=== PATIENT | female | born 1945 | race Caucasian/White ===

== ENCOUNTER → 2023-06-22 10:15 | Outpatient (REF) | payer OTHER, SELFPAY | LOC: HWRAD 10:15 | PROVIDERS: ATTENDING PHYSICIAN Urology; FAMILY PHYSICIAN Physician Assistant Medical | DX: N32.81 Overactive bladder (principal); N31.9 Neuromuscular dysfunction of bladder, unspecified | CPT/HCPCS: 76770 ==

== ENCOUNTER → 2023-10-21 08:39 | Outpatient (REF) | payer OTHER, SELFPAY | LOC: HWRAD 08:39 | PROVIDERS: ATTENDING PHYSICIAN Physician Assistant; FAMILY PHYSICIAN Physician Assistant Medical | DX: E04.2 Nontoxic multinodular goiter (principal) | CPT/HCPCS: 76536 ==

== ENCOUNTER → 2023-11-01 10:28 | Outpatient (REF) | payer OTHER, SELFPAY | LOC: HWWDC 10:28 | PROVIDERS: ATTENDING PHYSICIAN Physician Assistant Medical | DX: Z12.31 Encounter for screening mammogram for malignant neoplasm of breast (principal) | CPT/HCPCS: 77063; 77067 ==

== ENCOUNTER → 2024-03-08 13:41 | Outpatient (REF) | payer OTHER, SELFPAY | LOC: HWRAD 13:41 | PROVIDERS: ATTENDING PHYSICIAN Physician Assistant Medical | DX: M25.551 Pain in right hip (principal); L23.9 Allergic contact dermatitis, unspecified cause | CPT/HCPCS: 72110; 73523 ==

== ENCOUNTER → 2024-03-28 11:29 | Outpatient (REF) | payer OTHER, SELFPAY | LOC: HWRAD 11:29 | PROVIDERS: ATTENDING PHYSICIAN Urology; FAMILY PHYSICIAN Physician Assistant Medical | DX: N31.9 Neuromuscular dysfunction of bladder, unspecified (principal); N39.41 Urge incontinence; R39.198 Other difficulties with micturition | CPT/HCPCS: 76770 ==

== ENCOUNTER 2024-08-27 20:13 | Inpatient (IN) | payer OTHER, SELFPAY ==
[2024-08-27] VITALS (9 sets, daily range): BP systolic 131–171; BP diastolic 78–119; BMI 35.6
[2024-08-27 16:22] LABS: % Basophils 0.4 % (0-2); % Eosinophils 1.2 % (0-6); % Immature Granulocytes 0.3 % (0-0.5); % Lymphocytes 13.6 % (20.5-51.1); % Monocytes 7.2 % (1.7-9.3); % Neutrophils 77.3 % (42.2-75.2); Absolute Basophils 0.1 10^3/uL (0-0.2); Absolute Eosinophils 0.2 10^3/uL (0-0.7); Absolute Immature Granulocytes 0.1 10^3/uL (0-0.05); Absolute Lymphocytes 2.1 10^3/uL (1.2-3.4); Absolute Monocytes 1.1 10^3/uL (0.1-0.6); Hematocrit 42.5 % (37.0-47.0); Hemoglobin 14.1 g/dL (12.0-16.0); Mean Corp Hgb Conc. 33.2 g/dL (33.0-37.0); Mean Corpuscular Volume 90.4 fL (81.0-99.0); Nucleated Red Blood Cells % 0 %; Platelet Count 246 10^3/uL (130-400); Red Cell Dist. Width 14.3 % (11.5-14.5); White Blood Cell Count 15.6 10^3/uL (4.8-10.8)
--- NOTE | 2024-08-27 16:33 | ED.GENMED ---
History of Present Illness
General
Chief Complaint: Heart Rate Problem
Source: patient
Exam Limitations: none
Time Seen by Provider: 08/27/24 16:11
Nursing documentation reviewed up to this point in time: agreed with
History of Present Illness
History of Present Illness:
78-year-old female presenting to the emergency department today with concerns of being in atrial fibrillation. Saw the chief port director today has been feeling somewhat weak and tired over the past few days was found to be in atrial fibrillation with
rapid ventricular response. She was sent to the ER for further assessment. Denies specific chest pain nausea vomiting any recent illness. She is not anticoagulated.
Past History
Past History
ED Past Medical History: Hypercholesterolemia
Social History
Tobacco: Non-smoker
Alcohol: None
Drug: None
Personal:
Living: with family
Review of Systems
Review of Systems
Allergies reviewed?: Yes
All Other Systems: ROS reviewed and negative except as documented in HPI and ROS
Phy Exam
Physical Exam
Physical Exam:
GENERAL: Alert , in no apparent distress
EYE: pupils equal and reactive
NECK: Supple, no significant adenopathy.
ENT: o/p clr, mmm.
CARDIAC: Irregularly irregular tachycardic
LUNGS: Clear breath sounds bilaterally, no acute respiratory distress, no wheezes/rales/rhonchi
ABDOMEN: Soft, without focal tenderness, no r/g, no cvat
NEUROLOGICAL: Alert and oriented, no focal neuro deficits
SKIN: Warm and dry, skin intact.
MUSCULOSKELETAL: No edema, well perfused.
PSYCH: Normal and appropriate interaction.
Course
Orders/Labs/Results
Orders:
Orders
08/27/24 15:42
Electrocardiogram (*1) Urgent
Reason for Study: Chest Pain
EKG- Treatment ONCE
08/27/24 15:54
Electrocardiogram (*1) Urgent
Reason for Study: Palpitations
EKG- Treatment ONCE
08/27/24 16:05
COVID-19 Antigen Urgent
Source: Nasal Swab
Complete Blood Count/With Diff Urgent
Comprehensive Metabolic Panel Urgent
Influenza A+B Rapid Molecular Urgent
SHEREE Source: Nasal Swab
Specimen Description:
08/27/24 16:14
CT Head W/o Iv Contrast Urgent
Comment:
Reason For Exam: afib, memory issues
08/27/24 16:25
Diltiazem HCl [Cardizem] 10 mg IV NOW STA
Diltiazem HCl [Cardizem] 15 mg IV NOW STA
08/27/24 16:40
Add On- LAB Urgent
Tests Added?: tsh free t4
TSH Reflex To Free T4 Urgent
08/27/24 18:02
Diltiazem HCl [Cardizem] 10 mg IV NOW STA
08/27/24 18:07
Diltiazem 125 mg/125 ml Nss [Cardizem] 125 mg in 125 ml .ROUTE .STK-MED
08/27/24 18:15
Diltiazem 125 mg/125 ml Nss [Cardizem] 125 mg in 125 ml IV PER PROTOCOL
Initial dose in mg/hr, then titrate:: 5
Titrate to keep:: Heart rate 80-100 bpm
Titrate by mg/hr:: 5 mg/hr
Frequency of titrations (minutes):: 15
Maximum dose in mg/hr:: 15
08/27/24 18:59
Urinalysis Reflex To Culture Urgent
Date Specimen was Collected: 08/27/24
Time Specimen was Collected: 20:01
Acetaminophen [Tylenol] 650 mg PO NOW STA
Chest [CR Chest - 2 Views ] Urgent
Comment:
Reason For Exam: cough efevr
08/27/24 19:00
Acetaminophen [Tylenol] 650 mg .ROUTE .STK-MED ONE
08/27/24 19:04
Apixaban [Eliquis] 10 mg PO ONCE ONE
08/27/24 19:54
Admit/Transfer Patient As Directed
Co-Sign Provider:
Level of Care: Inpatient admission
Assign to:: IMU- Intermediate Care
Physician / Group: hospitalist
Diagnosis: afib RVR
Reason for Hospitalization: AFIB RVR
Expected length of stay greater than two midnights?: Yes
ELOS- Estimated Length of Stay in days: 2
I certify the patient meets the requirements for IP care: Yes
08/27/24 19:55
PRN Pain Medication Management As Directed
May give lesser potent ordered pain med per pt: Yes
preference::
Protocol:: Medication orders for pain may be administered in a
manner that supports deferring to patient preference
when the pt is:
- Requesting an ordered lesser potent pain medication.
Least to most potent pain medications are defined
as: acetaminophen < NSAID < tramadol < opioids
(morphine, oxycodone, hydromorphone).
- Requesting a lesser dose of the same medication IF
ORDERED.
- Requesting a less intrusive route of administration
if both routes are prescribed by the provider (PO <
IV).
08/27/24 19:56
Apixaban [Eliquis] 10 mg .ROUTE .STK-MED ONE
08/27/24 19:57
Code Status As Directed
Resuscitation Status: Full Code
08/27/24 20:00
Blood Culture Q30M
SHEREE Source: Blood/Venous
Specimen Description:
0.9% Sodium Chloride 500 ml [Nss] 500 ml IV BOLUS
08/27/24 20:30
Blood Culture Q30M
SHEREE Source: Blood/Venous
Specimen Description:
08/28/24 06:00
Echo 2D MMode Color/Doppler IN AM
Reason for Study: new AFIB
Abnormal Lab Results
08/27/24
16:05
WBC 15.6 H 10^3/uL
(4.8-10.8)
Abs Immat Gran (auto) 0.1 H 10^3/uL
(0-0.05)
Absolute Neuts (auto) 12.0 H 10^3/uL
(1.4-6.5)
Absolute Monos (auto) 1.1 H 10^3/uL
(0.1-0.6)
Neutrophils % 77.3 H %
(42.2-75.2)
Lymphocytes % 13.6 L %
(20.5-51.1)
BUN 23 H mg/dl
(7-17)
Glucose 113 H mg/dl
(70-99)
08/27/24 16:05
08/27/24 16:05
Vital Signs
Initial and Last Documented VS:
Initial Vital Signs
Temp Pulse Resp BP Pulse Ox
100.3 F 125 18 171/119 97
08/27/24 15:52 08/27/24 15:52 08/27/24 15:52 08/27/24 15:52 08/27/24 15:52
Last Documented Vital Signs
Temp Pulse Resp BP Pulse Ox
101.0 F H 123 20 145/89 97
08/27/24 18:44 08/27/24 18:44 08/27/24 18:44 08/27/24 18:44 08/27/24 18:44
MDM/Problems Addressed
MDM/Problems Addressed:
78-year-old female presenting with concerns of atrial fibrillation discovered by the chief port director prior to arrival. Has been feeling vague weakness fatigue brain fog over the past few days. On arrival patient is tachycardic from 120s to 150s,
hypertensive. Given initial bolus of Cardizem slight improvement in heart rate given subsequent dose improvement to the 120s admitted for further testing monitoring. Started on Eliquis.
*Critical Care Note
Total Time (30-74mins, 75-104mins- exclusive of procedures): Not Applicable
ED Attending Note
-
Portions of this chart may have been created with voice recognition software.� Occasional wrong word or��sound alike� substitutions may have occurred due to the inherent limitations of voice recognition software.
Discharge Plan
Departure
Patient Disposition: Admit
Date of Disposition: 08/27/24
Time of Disposition: 19:33
Admit to: Telemetry
Admit to doctor: [facility]
Presentation/result/management discussed w/ accepting MD/DO: Hospitalist
Patient with high blood pressure during this ER visit?: No
Condition: Good
Covid-19: Not Applicable
Discharge Problem:
Atrial fibrillation
Prescriptions:
No Action
levothyroxine 50 MCG tablet
50 mcg PO DAILY@0700
diltiazem HCl [Cartia XT] 120 MG capsule,extended release 24hr
120 mg PO QPM
atorvastatin 40 MG tablet
40 mg PO QPM
cetirizine 10 MG tablet
10 mg PO QPM
biotin 5 MG capsule
5 mg PO DAILY
calcium carbonate-vitamin D3 [Calcium 600 + D(3)] 1 EACH tablet
1 ea PO QPM
Iron 65 MG Tab
65 mg PO QPM
cholecalciferol (vitamin D3) [Vitamin D3] 400 UNITS tablet
1,000 units PO QPM
magnesium 200 MG tablet
360 mg PO QPM
B complex-vitamin C-folic acid 400 MCG tablet
1 tab PO QPM
melatonin 1 MG tablet
5 mg PO HSPRN PRN (Reason: insomnia)
chlorhexidine gluconate 15 ML mouthwash
15 ml PO HS
sennosides [senna] 1 TABLET tablet
2 tab PO BID 0RF
docusate sodium 100 MG capsule
100 mg PO BID 0RF
oxycodone-acetaminophen [Percocet] 1 EACH tablet
0.5 - 1 tab PO Q4HPRN PRN (Reason: moderate-severe pain) Qty: 30 0RF
Rx Instructions:
1/2 tab for moderate pain, 1 if severe pain
dx lami
ongoing therapy
docosahexaenoic acid-epa 1 CAP capsule
3,600 mg PO QPM Qty: 0 0RF
Rx Instructions:
Resume in 1 week.
coenzyme Q10 [Co Q-10] 300 MG capsule
300 mg PO QPM Qty: 0 0RF
Rx Instructions:
Resume in 1 week.
glucosamine hernandez 2KCl-chondroit [Glucosamine Sulf-Chondroitin] 1 EACH capsule
2 cap PO QPM Qty: 0 0RF
Rx Instructions:
Resume in 1 week.
lorazepam 1 MG tablet
1 mg PO Q8HPRN PRN (Reason: muscle spasms/insomnia) Qty: 20 0RF
Rx Instructions:
Caution with Percocet - can cause drowsiness.
Take only as needed and as directed.
aspirin [Ecotrin Low Strength] 81 MG tablet,delayed release (DR/EC)
81 mg PO DAILY Qty: 1 0RF
Rx Instructions:
Home medication. Resume 03/22/21 per surgeon.
Referrals:
Everett Macias PA-C [Family Provider] -
Activity Restrictions/Additional Instructions:
th
Interventions
Interventions:
*Risk Screen - Suicide Last Done: 08/27/24 15:54
*General Assessment Last Done: 08/27/24 15:54
*Neglect/Abuse Screening Last Done: 08/27/24 15:54
*ED COVID-19 Vaccine History Last Done: 08/27/24 15:54
ED- Cardiac Assessment Last Done: 08/27/24 18:17
ED- Pulmonary Assessment Last Done: 08/27/24 16:42
Discharge Date and Time
Print Language: PORTUGUESE
[2024-08-27 16:37] LABS: ALT (SGPT) 29 U/L (0-35); AST (SGOT) 26 U/L (14-36); Albumin 3.9 g/dl (3.5-5.0); Alkaline Phosphatase 107 U/L (38-126); Blood Urea Nitrogen 23 mg/dl (7-17); Calcium 9.4 mg/dl (8.4-10.2); Carbon Dioxide 26 mmol/L (22-30); Chloride 99 mmol/L (98-107); Glucose 113 mg/dl (70-99); Potassium 4.7 mmol/L (3.5-5.1); Sodium 135 mmol/L (135-145); Total Bilirubin 0.7 mg/dl (0.2-1.3); Total Protein 6.8 g/dl (6.3-8.2); eGFR > 60.00
[2024-08-27 16:43] LABS: COVID-19 Antigen Negative (Negative)
--- NOTE | 2024-08-27 16:58 | W.PN.CD ---
Addendum entered and electronically signed by Vikas Cornell MD 08/27/24 17:55:
I saw and examined the patient.
The BINDING PRINTER's note was reviewed and I agree with the note.
Comment: Rate control and when CT allows add Eliquis. Symptoms started several days ago but AFib duration is unknown and given low grade fever and mild leukocytosis she might have a infectious or inflamatory process accounting for some of her new
fatigue. Neurologic symptoms are of uncertain etiology.
Addendum entered and electronically signed by JESU Stuart 08/27/24 17:28:
There is WBC elevation and low grade temp- w/u per primary
Original Note:
Today's Communication / Plan
-
-rate-control. IV dilt is ordered. Monitor telemetry and BP.
-if head CT negative, anticoagulation should be initiated
-TSH pending
-echo once HR better controlled
Impression / Plan
-
78 y/o female (patient of Dr. Rhodes) with dyslipidemia, atrial tachycardia, bradycardia, hypertension, and hypothyroidism who presents from the cardiology office after she was seen to be in AFIB with RVR (new diagnosis), which was symptomatic with
fatigue. She was sent to ER for further evaluation. 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
AFIB with RVR, onset unknown, new diagnosis:
-IV diltiazem administered for better rate control- follow telemetry
-[id number] score is 4 for age, HTN, female- after head CT done, if negative, add anticoagulation
-TSH pending
-update echo
HTN:
-monitor with med adjustments
Hypothyroidism:
-TSH pending
-on replacement therapy
Physical Exam
Vital Signs/Labs
Vital Signs
Temp Pulse Resp BP Pulse Ox
100.3 F 125 18 171/119 97
04/28/25 15:52 08/27/24 15:52 08/27/24 15:52 08/27/24 15:52 08/27/24 15:52
08/27/24 16:05
08/27/24 16:05
Physical Exam
Constitutional: No acute distress
EENT: Anicteric
Cardiovascular: Rhythm/rate is irregular
Respiratory: Respiratory effort normal and Lungs clear to auscul.
Neuro/Psych: AO x 3
Other: Skin
Data Reviewed
-
Date of Service: August 27, 2024
EKG: Tracing Personally Visualized and interpreted (AFIB with RVR, PVC) and Other (AFIB with RVR, telemetry)
Medical Tests (PFT, Pathology etc): Report Reviewed by me (echo 05/20/21: Normal biventricular size and systolic function without regional wall motion abnormality. Aortic sclerosis. )
Labs: Labs Reviewed by me
[2024-08-27] MEDS: CARDIZEM 15 MG IV (17:02)
[2024-08-27] MEDS: CARDIZEM 10 MG IV (18:19)
[2024-08-27] MEDS: CARDIZEM 125 IV (18:23)
[2024-08-27] MEDS: TYLENOL 650 MG PO (19:03)
--- NOTE | 2024-08-27 19:46 | HPS.HSE ---
Family Physician
-
Family Physician: Everett Macias PA-C
Chief Complaint
-
Uncontrolled atrial fibrillation
History of Present Illness
This is a 78 year-old female with past medical history significant for hypertension, atrial tachycardia, hypothyroid, hyperlipidemia presenting to the emergency department from cardiology clinic with rapid atrial fibrillation.
Patient reported that she had a COVID vaccination on . About a day later she states she started feeling weak and tired. She denied any federico fevers. She denies feeling short of breath. She denies any cough. She denied feeling any
palpitations. She denied lightheadedness or dizziness. She has chronic urinary symptoms including her incontinence. She states that she has had more incontinence over the last 2 days. She denies any diarrhea. She denies any nausea or vomiting.
She denies any chest pain.
In the emergency department she had a Tmax of 101, blood pressure 145/59 with heart rate in 130s. ECG shows atrial fibrillation rate of 136.
CBC had a white count of 15.6 but otherwise unremarked. Electrolytes were stable with a K of 4.7 and BUN and creatinine were normal.
Additional testing is pending.
Medical History
Past Medical History
Past Medical History: Reports Arrhythmia (History of atrial tachycardia), HTN, Hypercholesterolemia and Hypothyroidism
Past Surgical History: Reports Appendectomy, Orthopedic (Left knee replacement,L5-S1 ILESI , Laminectomy and spinal fusion, L3-L5--Dr. Gordon Moyer 03/2021 ) and Tonsilectomy
Social History
Tobacco: Non-smoker
Alcohol: Occasional
Drug: None
Personal:
Living: With Family
Employment: Retired
Family History
Family History: Not pertinent
Allergies / Home Medications
Allergies reflects when Allergies were last updated in [employer].
Home Medications with original date entered in [employer]
Allergy/Medication List:
Allergies
Allergy/AdvReac Type Severity Reaction Status Date / Time
bee venom protein (honey bee) Allergy Swelling Verified 03/17/21 06:18
Home Medications
Iron 65 mg PO QPM Supplement 10/03/18
atorvastatin 40 mg tablet 40 mg PO QPM High cholesterol 10/03/18
biotin 5 mg capsule 5 mg PO DAILY Supplement 10/03/18
calcium 600 mg (as carbonate)-vitamin D3 10 mcg (400 unit) tablet (Calcium 600 + D(3)) 1 ea PO QPM Supplement 10/03/18
cetirizine 10 mg tablet 10 mg PO QPM Allergies 10/03/18
diltiazem HCl 120 mg capsule,extended release 24 hr (Cartia XT) 120 mg PO QPM Heart disease/condition 10/03/18
levothyroxine 50 mcg tablet 50 mcg PO DAILY@0700 Thyroid 10/03/18
cholecalciferol (vitamin D3) 10 mcg (400 unit) tablet (Vitamin D3) 1,000 units PO QPM Supplement 03/04/21
magnesium 200 mg tablet 360 mg PO QPM Electrolyte Repletion 03/04/21
vitamin B complex-vitamin C-folic acid 400 mcg tablet 1 tab PO QPM Supplement 03/04/21
melatonin 1 mg tablet 5 mg PO HSPRN PRN insomnia 03/09/21
chlorhexidine gluconate 0.12 % mouthwash 15 ml PO HS Oral care 03/17/21
aspirin 81 mg tablet,delayed release (Ecotrin Low Strength) 81 mg PO DAILY ##1 03/18/21
coenzyme Q10 300 mg capsule (Co Q-10) 300 mg PO QPM Supplement ##0 03/18/21
docosahexaenoic acid (dha)-epa 120 mg-180 mg capsule 3,600 mg (12 x 120-180 mg) PO QPM Supplement ##0 03/18/21
docusate sodium 100 mg capsule 100 mg PO BID 03/18/21
glucosamine sulfate dipotassium Cl 500 mg-chondroitin 400 mg capsule (Glucosamine Sulfate 2 KCL-Chondroitin) 2 cap PO QPM Supplement ##0 03/18/21
lorazepam 1 mg tablet 1 mg PO Q8HPRN PRN muscle spasms/insomnia #20 tabs 03/18/21
oxycodone-acetaminophen 10 mg-325 mg tablet (Percocet) 0.5 - 1 tab PO Q4HPRN PRN moderate-severe pain #30 tabs 03/18/21
sennosides 8.6 mg tablet (senna) 2 tab PO BID 03/18/21
Review of Systems
-
History Source: Patient
Constitutional: Reports No Symptoms
EENT: Reports No Symptoms
Respiratory: Reports No Symptoms
Cardiac: Reports No Symptoms
Abdomen/GI: Reports No Symptoms
: Reports No Symptoms
Musculoskeletal: Reports No Symptoms
Skin: Reports No Symptoms
Neurological: Reports No Symptoms
Endocrine: Reports No Symptoms
Hematologic/Lymphatic: Reports No Symptoms
Psych: Reports No Symptoms
Physical Exam
Vital Signs
Vital Signs
Temp Pulse Resp BP Pulse Ox
101.0 F H 123 20 145/89 97
08/27/24 18:44 08/27/24 18:44 08/27/24 18:44 08/27/24 18:44 08/27/24 18:44
Physical Exam
General: Well Developed, Well Nourished, No Apparent Distress and Comfortable
HEENT: NormoCephalic, Anicteric, Moist mucous membranes and Atraumatic
Respiratory: Clear
Cardiac: S1/S2, Irregular Rhythm and Tachycardia
Breast: Deferred by me
GI: Soft, Non Tender, Non Distended and Normal Bowel Sounds
Rectal: Deferred by Provider
Genito-urinary: Deferred by me
Musculoskeletal: No Clubbing, No Cyanosis and No Edema
Skin: Warm
Neuro: AO x 3 and Nonfocal/grossly intact
Hematologic/Lymphatic: No Lymphadenopathy
Psych: Calm
Laboratory Results
-
08/27/24 16:05
08/27/24 16:05
Laboratory Results
Total Bilirubin 0.7 mg/dl (0.2-1.3) 08/27/24 16:05
AST 26 U/L (14-36) 08/27/24 16:05
ALT 29 U/L (0-35) 08/27/24 16:05
Alkaline Phosphatase 107 U/L (38-126) 08/27/24 16:05
Data Reviewed
-
Medical Tests (Nuc Med, Echo, EKG etc): Image Personally Visualized and interpreted
Lab Data: Labs Reviewed by me
Old Records: Reviewed
Impression/Plan
-
IMPRESSION:
78-year-old female with history of atrial tachycardia, hypertension, hypothyroid and hyperlipidemia who presents emergency department from cardiology clinic with rapid atrial fibrillation. Febrile to 101 in the Emergency Department without any
acute symptoms. Leukocytosis to 15 but otherwise unremarkable labs.
PLAN:
AFIB RVR - RATe in the 130s
- admit to IMU (fevers with w/u pending)
- COVID negative
- flu pending
- on diltiazem gtt for rate control
- started eliquis 5 bid
- echo, bnp, tsh in am
- npo after midnight for possible cardioversion
- cardiology aware
Fever - Source unknown. Recent COVID 19 vaccination
- flu test pending
- chest xray
- u/a
- blood cx
- hold abx for now
Cardiac - no h/o chf or cad
- hold asa 81
- hold oral dilt
- continue statin
DVT PPX - on apixaban
Code status - Full code
[2024-08-27] MEDS: ELIQUIS 10 MG PO (19:58)
[2024-08-27] MEDS: NSS 500 IV (20:09)
[2024-08-27 20:30] LABS: Urine Albumin 1+ (Neg - Trace); Urine Bilirubin Negative (Negative); Urine Character Clear (Clear); Urine Color Yellow; Urine Glucose Negative (Negative); Urine Ketone 1+ (Negative); Urine Leukocyte 3+ (Negative); Urine Nitrite Negative (Negative); Urine Occult Blood 1+ (Negative); Urine Specific Gravity 1.005 (<1.030); Urine Urobilinogen Negative (Neg - 1+); Urine pH 6.5 (5.0-9.0)
[2024-08-27 20:50] LABS: Urine Bacteria Few (Negative); Urine Red Blood Cell 0-2 /HPF (0-2); Urine Squamous Cell >30 /LPF (Few); Urine White Cell 21-25 /HPF (0-5)
[2024-08-27] MEDS: SENOKOT 17.2 MG PO (22:26)
[2024-08-27] MEDS: MELATONIN 5 MG PO (22:26)
[2024-08-27] MEDS: COLACE 100 MG PO (22:26)
--- NOTE | 2024-08-27 22:41 | PTCARENOTE ---
pt admitted from the ED- pt is AAOx3, VSS. able to make needs known. a-fib PVC's on the monitor. cardizem gtt running at 15ml/hr. no complaints of pain. able to walk into bathroom x1 assist just to help with wires. no SOB. oriented to new room, call
nieves within reach, care ongoing.
[2024-08-28] VITALS (12 sets, daily range): BP systolic 91–135; BP diastolic 57–113; BMI 36.1
--- NOTE | 2024-08-28 00:18 | W.PN.UPDATE ---
Update Note
Progress Note Update
CXR shows mild opacity in the right upper lobe adjacent to the minor fissure, consistent with pneumonia. Started on Ceftriaxone 1000 mg IV Q24H and Azithromycin 500 mg IV Q24H.
[2024-08-28] MEDS: ZITHROMAX INFUSION 250 IV ×2 (01:06→23:04)
[2024-08-28] MEDS: STERILE WATER FOR INJECTION 10 ML IV ×2 (01:06→23:04)
[2024-08-28] MEDS: ROCEPHIN 1000 MG IV ×2 (01:06→23:04)
--- NOTE | 2024-08-28 01:12 | PTCARENOTE ---
CXR results noted- notified covering [employer]OR- IV abx ordered per JUN.
[2024-08-28] MEDS: CARDIZEM 125 IV (02:11)
[2024-08-28] MEDS: SYNTHROID 50 MCG PO (06:02)
[2024-08-28 06:39] LABS: Hematocrit 39.3 % (37.0-47.0); Hemoglobin 13.7 g/dL (12.0-16.0); Mean Corp Hgb Conc. 34.9 g/dL (33.0-37.0); Mean Corpuscular Hgb 30.6 pg (27.0-31.0); Mean Corpuscular Volume 87.9 fL (81.0-99.0); Mean Platelet Volume 9.6 fL (7.4-10.4); Platelet Count 244 10^3/uL (130-400); Red Blood Cell Count 4.47 10^6/uL (4.20-5.40); White Blood Cell Count 16.3 10^3/uL (4.8-10.8)
[2024-08-28 06:57] LABS: Blood Urea Nitrogen 13 mg/dl (7-17); Calcium 9.1 mg/dl (8.4-10.2); Carbon Dioxide 22 mmol/L (22-30); Chloride 105 mmol/L (98-107); Estimated Creatinine Clearance 79 ml/min; Glucose 114 mg/dl (70-99); HDL Cholesterol 52 mg/dl; LDL Cholesterol, Calculated 91 mg/dl; Magnesium 1.9 mg/dl (1.6-2.3); Phosphorus 2.9 mg/dl (2.5-4.5); Potassium 4.2 mmol/L (3.5-5.1); Sodium 139 mmol/L (135-145); Total Cholesterol 155 mg/dl (50-199); Triglyceride 61 mg/dl (10-149); Very Low Density Lipoprotein 12 mg/dl (0-30); eGFR > 60.00
[2024-08-28 07:01] LABS: NT-proBNP 1650 pg/ml
--- NOTE | 2024-08-28 07:56 | W.PN.CD ---
Today's Communication / Plan
-
Tx pf PNA as per primary team
monitor pending cultures
echo
transition to oral cardizem
continue with rate control and anticoagulation. Will reassess plan for rhythm control and cardioversion after recovery from PNA.
Impression / Plan
-
78 y/o female (patient of Dr. Rhodes) with dyslipidemia, atrial tachycardia, bradycardia, hypertension, and hypothyroidism with recent travel ( cruise to [facility]) who presents from the cardiology office after she was seen to be in AFIB with RVR
(new diagnosis), which was symptomatic with fatigue. She was sent to ER for further evaluation. 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
AFIB with RVR, onset unknown, new diagnosis:
-IV diltiazem administered for better rate control- Earle is on Cardizme 120mg as outpatient
- transition to oral Cardizme will give cardizem 240mg this morning
-[id number] score is 4 for age, HTN, female- head CT-negative,- Now on Eliquis 5mg BID
-update echo
- would plan for rate control and anticoagulation until recovery from pneumonia . Will plan for cardioversion after recovery .
.
fever 101- appears related to pneumonia
- Covid and influenza negative
- abx per primary team
- monitor pending cultures ( BC and urine)
.
mental status - yesterday some complaints doing calculations. may be related to fever/ PNA . Appears improved. Head CT negative
- continue to monitor. tx per
HTN:
-monitor with med adjustments
Hypothyroidism:
tsh 0.8
Physical Exam
Vital Signs/Labs
Vital Signs
Temp Pulse Resp BP Pulse Ox
98.0 F 115 17 134/81 95
08/28/24 03:30 08/28/24 06:00 08/28/24 06:00 08/28/24 06:00 08/27/24 22:38
08/27/24 08/28/24 08/29/24
06:59 06:59 06:59
Actual Weight 89.5 kg
08/28/24 06:14
08/28/24 06:14
Magnesium 1.9 mg/dl (1.6-2.3) 08/28/24 06:14
Triglycerides 61 mg/dl (10-149) 08/28/24 06:14
LDL Cholesterol, Calc 91 mg/dl 08/28/24 06:14
VLDL Cholesterol, Calc 12 mg/dl (0-30) 08/28/24 06:14
HDL Cholesterol 52 mg/dl 08/28/24 06:14
08/28/24
06:14
[id number] Pept 1650
Physical Exam
Constitutional: No acute distress
Cardiovascular: Rhythm/rate is irregular
Respiratory: Wheeze Absent and Rhonchi Absent
GI: Soft
Neuro/Psych: Alert
Data Reviewed
-
Date of Service: August 28, 2024
Medical Decision Making: Reviewed Test Results
Medical Tests (PFT, Pathology etc): Image Personally Visualized and interpreted
Labs: Labs Reviewed by me
Old Records: Requested
[2024-08-28] MEDS: SENOKOT 17.2 MG PO ×2 (08:16→19:31)
[2024-08-28] MEDS: COLACE 100 MG PO ×2 (08:16→19:31)
[2024-08-28] MEDS: TYLENOL 650 MG PO (08:16)
[2024-08-28] MEDS: ELIQUIS 5 MG PO ×2 (08:16→19:31)
[2024-08-28] MEDS: CARDIZEM CD 240 MG PO (09:51)
--- NOTE | 2024-08-28 13:07 | PTCARENOTE ---
Assumed care of patient this morning. Pt's only complaint was some back pain from laying in the bed, medicated with Tylenol this morning with adequate relief, see MAR. She remains in A-fib but no plan for cardioversion per . Pt also
switched to oral Cardizem and gtt if off. HR controlled. Patient has been walking into bathroom herself. She was able to have a BM. Assessment, care and VS as charted.
--- NOTE | 2024-08-28 15:08 | CON.PUL ---
Consultation
Consultation Request
Date/Time Consultation Requested: 08/28/2024 - 142
Date/Time Consultation Performed: 08/28/2024 - 150
Requesting Provider: Dr. Harmon
Performing Provider: Dr.. Ingram
Reason for Consultation: PNA
Medical History
-
Chief Complaint: Fatigue + new onset A-fib
History of Present Illness:
78-year-old female with a past medical history of atrial tachycardia, hypertension, hypercholesterolemia, hypothyroidism, and osteoarthritis/DJD who presents from her cardiology appointment with new onset A-fib. Patient is also been feeling
significant fatigue for 3 days prior to arrival. Patient follows with Dr. Rhodes and was seen at his office for routine follow-up due to history of atrial ectopic tachycardia with history of PVCs + bradycardia. Prior Holter in February 21 was
benign. Patient found to be in atrial fibrillation which is a new diagnosis for her. She had just returned from vacation on 08/22/2024 after going on an 11-day trip with her grandchildren and daughter where she was driving across country [place]
[email or web address]. Prior to that she was on a 19-day trip across [place] and had just returned from that on 08/08/2024. Also last she was vaccinated against COVID. Coincidentally, she started to feel weak and tired about a day after that
without any federico fevers, SOB or cough. Initially in the ER, temperature was 100.3 �F (later found to be febrile to 101 �F), tachycardic to 125, respiratory rate 18, hypertensive to 171/119 and saturating 97% on room air. Initial labs showed
leukocytosis to 15.6, Hb 14.1, TSH 0.8, urinalysis with +1 ketones, +3 leukocyte esterase and 21�25 urine WBC. Her COVID-19 antigen was negative. Influenza swab was negative for flu A/B. Blood cultures + urine cultures collected. CT head showed
no acute intracranial abnormality (performed due to memory issues). Initial CXR showed mild opacification in the right upper lobe adjacent to the minor fissure consistent with pneumonia. She was initially treated with Tylenol, Eliquis, started on
Cardizem drip and given 500 cc bolus of NS 0.9%. She was admitted to the IMU and given her pneumonia, pulmonary service now consulted for additional management/recommendations.
When asked with the patient, she was resting in bed in no acute distress, breathing comfortably on room air. SpO2 95%, HR 91 and BP 125/86. Her , Silvia, was at bedside and all questions were answered. She feels better, denying SOB at rest.
Still feels fatigued. Denies a cough, MARTIN, abdominal pain, nausea, diarrhea, fevers chills.
PMHx: Atrial tachycardia, hypertension, hypercholesterolemia, hypothyroidism, osteoarthritis, DJD
PSHx: Bilateral cataract extraction, tonsillectomy, appendectomy, left TKA, L5-S1 IL RONEL, laminectomy and spinal fusion (L3-L5), hand surgery (10/2021), left hand surgery (10/2023)
Past Medical History
Past Medical History: Other (Above as per HPI)
Past Surgical History: Other (Above as per HPI)
Social History
Tobacco: Non-smoker
Alcohol: Occasional
Drug: None
Family History
Family History: CAD (Father, mother and siblings), Cancer (Father: Bladder cancer) and Hypertension (Father)
Allergies / Home Medications
Allergies
Allergy/AdvReac Type Severity Reaction Status Date / Time
bee venom protein (honey bee) Allergy Swelling Verified 03/17/21 06:18
Home Medications
�Medication �Instructions �Recorded �Confirmed �Last Taken �Type
Iron 65 mg PO QPM Supplement 10/03/18 08/27/24 03/03/21 History
atorvastatin 40 mg tablet 40 mg PO QPM High cholesterol 10/03/18 08/27/24 08/26/24 History
biotin 5 mg capsule 5 mg PO DAILY Supplement 10/03/18 08/27/24 03/03/21 08:00 History
calcium 600 mg (as 1 ea PO QPM Supplement 10/03/18 08/27/24 03/03/21 History
carbonate)-vitamin D3 10 mcg (400
unit) tablet (Calcium 600 + D(3))
cetirizine 10 mg tablet 10 mg PO QPM Allergies 10/03/18 08/27/24 08/26/24 History
diltiazem HCl 120 mg 120 mg PO QPM Heart 10/03/18 08/27/24 08/26/24 History
capsule,extended release 24 hr disease/condition
(Cartia XT)
levothyroxine 50 mcg tablet 50 mcg PO DAILY@0700 Thyroid 10/03/18 08/27/24 08/27/24 History
cholecalciferol (vitamin D3) 10 1,000 units PO QPM Supplement 03/04/21 08/27/24 03/03/21 History
mcg (400 unit) tablet (Vitamin D3)
magnesium 200 mg tablet 360 mg PO QPM Electrolyte Repletion 03/04/21 08/27/24 03/03/21 History
vitamin B complex-vitamin C-folic 1 tab PO QPM Supplement 03/04/21 08/27/24 03/03/21 History
acid 400 mcg tablet
melatonin 1 mg tablet 5 mg PO HSPRN PRN insomnia 03/09/21 08/27/24 08/26/24 History
coenzyme Q10 300 mg capsule (Co 300 mg PO QPM Supplement ##0 03/18/21 08/27/24 03/03/21 Rx
Q-10)
docosahexaenoic acid (dha)-epa 120 3,600 mg PO QPM Supplement ##0 03/18/21 08/27/24 03/03/21 Rx
mg-180 mg capsule
docusate sodium 100 mg capsule 100 mg PO BID 03/18/21 08/27/24 Unknown Rx
glucosamine sulfate dipotassium Cl 2 cap PO QPM Supplement ##0 03/18/21 08/27/24 03/03/21 Rx
500 mg-chondroitin 400 mg capsule
(Glucosamine Sulfate 2
KCL-Chondroitin)
sennosides 8.6 mg tablet (senna) 2 tab PO BID 03/18/21 08/27/24 Unknown Rx
mirabegron 50 mg tablet,extended 50 mg PO HS 08/28/24 08/28/24 Unknown History
release 24 hr (Myrbetriq)
Review of Systems
-
History Source: Patient
All other systems: Negative unless noted
Vitals / Labs / Diagnostic Testing
Vital Signs
Temp Pulse Resp BP Pulse Ox
98.4 F 94 17 130/96 95
08/28/24 11:32 08/28/24 18:10 08/28/24 09:51 08/28/24 18:10 08/27/24 22:38
Lab Data
08/28/24 06:14
08/28/24 06:14
Microbiology
08/27/24 16:05 Nasal Swab Influenza Types A & B (NALDO) - Final
Negative for Influenza A & B, NAAT
Negative results must be combined with clinical observations
and patient history.
Nucleic Acid Amplification test (NAAT)performed on the
[employer] platform.
Diagnostic Testing:
Physical Exam
-
HEENT: Normocephalic and Anicteric
Cardiovascular: Irregular Rhythm (Irregularly irregular) and Peripheral Edema (negative)
Respiratory: Wheeze (negative), Rales (Posterior right upper lobe), Rhonchi (Posterior right upper lobe) and Non-Labored Respirations
GI: Soft, Non Distended, Non Tender and Normal Bowel Sounds
Neurology: AO x 3 and Tremors (negative)
Skin: Warm and Dry
General: Respiratory Distress (negative), Comfortable, Fever (negative) and Chills (negative)
Assessment
-
Assessment: 78-year-old female with a past medical history of atrial tachycardia, hypertension, hypercholesterolemia, hypothyroidism, and osteoarthritis/DJD who presents from her cardiology appointment with new onset A-fib. Patient is also been
feeling significant fatigue for 3 days prior to arrival. Patient follows with Dr. Rhodes and was seen at his office for routine follow-up due to history of atrial ectopic tachycardia with history of PVCs + bradycardia. Prior Holter in February 21
was benign. Patient found to be in atrial fibrillation which is a new diagnosis for her. She had just returned from vacation on 08/22/2024 after going on an 11-day trip with her grandchildren and daughter where she was driving across country seeing
[email or web address]. Prior to that she was on a 19-day trip across [place] and had just returned from that on 08/08/2024. Also last she was vaccinated against COVID. Coincidentally, she started to feel weak and tired about a day after that
without any federico fevers, SOB or cough. Initially in the ER, temperature was 100.3 �F (later found to be febrile to 101 �F), tachycardic to 125, respiratory rate 18, hypertensive to 171/119 and saturating 97% on room air. Initial labs showed
leukocytosis to 15.6, Hb 14.1, TSH 0.8, urinalysis with +1 ketones, +3 leukocyte esterase and 21�25 urine WBC. Her COVID-19 antigen was negative. Influenza swab was negative for flu A/B. Blood cultures + urine cultures collected. CT head showed
no acute intracranial abnormality (performed due to memory issues). Initial CXR showed mild opacification in the right upper lobe adjacent to the minor fissure consistent with pneumonia. She was initially treated with Tylenol, Eliquis, started on
Cardizem drip and given 500 cc bolus of NS 0.9%. She was admitted to the IMU and given her pneumonia, pulmonary service now consulted for additional management/recommendations.
Chronic conditions [employer]: Atrial tachycardia, hypertension, hypercholesterolemia, hypothyroidism, osteoarthritis, DJD
Impression:
#Right upper lobe pneumonia/CAP
#New onset A-fib with RVR (now rate controlled)
#Leukocytosis likely due to pneumonia with sepsis without shock
#Elevated proBNP
#Abnormal urinalysis with +3 leukocyte esterase and 21�25 urine WBC
#Hypothyroidism on levothyroxine
#History of hypertension
#History of hypercholesterolemia
Plan:
- Patient found to have a community-acquired pneumonia involving her right upper lobe on CXR from 08/27/2024.
- She has not been feeling well over the last 3 days prior to arrival with fatigue; coincidentally she received the COVID shot last (08/23/2024)
- She also had gone on to long trips, including a 19-day trip to [place] that she just returned from 05/10/2024, and then went on an 11-day trip 2 days later from 08/10 - 08/22/2024. Per the , she also was breathing fast during her sleep last
week and she had woken up with sweats for 2 days last week as well (08/22 + 08/23)
- Given that she was febrile on admission with leukocytosis and opacification in the RUL, agree with treating for CAP with broad-spectrum antibiotics. Currently on ceftriaxone/azithromycin
- Would plan to treat for 7 days total
- Follow-up infectious workup with blood cultures; follow-up urine culture; check urine antigens for Legionella + strep pneumonia; check sputum culture if she can produce a decent sample
- Will need repeat imaging in 4-6 weeks to assure her RUL PNA has resolved/improved
- Maintain SpO2 >90-94%
- prn nebulized bronchodilators - not currently bronchospastic; currently no need for scheduled bronchodilators as she denies SOB and denies cough - continue to monitor
- Maintain MAP>65
- Heart rate control with goal <110 with Cardizem CD 240 mg PO daily
- Cardiology on board - recs appreciated
- Continue Eliquis
- Continue levothyroxine 50 mcg PO daily (of note, TSH was WNL)
- Replete electrolytes with K>4, Mg>2
- Maintain euglycemia with goal BG >100 and <180
- Trend H/H and transfuse if needed to keep Hb>7g/dL; keep plt>20k, unless there is concern for bleeding then keep plt>50k
- Incentive spirometer encouraged 10x per hour for at least 4 hrs a day
- DVT ppx: Eliquis
Pulmonary service will continue to follow along. Outpatient pulmonary office follow-up will be arranged for repeat imaging and also to check full PFTs
Data:
CXR 08/27/2024:
Mild right upper lobe pneumonia. Mild cardiomegaly. No congestive heart failure.
Total time spent today was 58 minutes for this encounter. Time includes reviewing laboratory test/imaging results, reviewing pertinent medical records, obtaining and reviewing medical history, performing an appropriate exam, ordering medications,
tests and procedures. Time also includes documentation of this encounter, coordinating patient care and communicating with other healthcare professionals. Total time does not include separately billed tests performed on this date of service.
--- NOTE | 2024-08-28 15:42 | W.PN.HOSP.TC ---
Today's Communication/Plan
-
Pulm consult
recheck labs
Assessment / Plan
Assessment / Plan
AFIB RVR - RATe in the 130s
- admit to IMU (fevers with w/u pending)
- COVID negative
- flu pending
- on diltiazem gtt for rate control
- started eliquis 5 bid
- echo:pending
tsh 0.8
- Discussed with Dr. Rhodes, plans transition to oral Cardizem CD 240 qd, for rate control and continue Eliquis. Tx PNA and will discuss cardioversion after recovery from PNA
- cardiology aware
Fever - Source unknown. Recent COVID 19 vaccination
- flu test Negative
- chest xray
- u/a
- blood cx
Meds: Rocephin/Azithromycin
Pulm consult
Cardiac - no h/o chf or cad
- hold asa 81
- continue statin
DVT PPX - on apixaban
Code status - Full code
Anticipated Discharge: 24 - 48 hours
Subjective/Interval History
-
Date of Service: August 28, 2024
awake, alert
Objective Data
-
Labs:
Laboratory Results
08/28/24
06:14
WBC 16.3 H
Hgb 13.7
Hct 39.3
Plt Count 244
Sodium 139
Potassium 4.2
Chloride 105
Carbon Dioxide 22
BUN 13
Creatinine 0.6
Glucose 114 H
Calcium 9.1
Vital Signs:
Vital Signs
Temp Pulse Resp BP Pulse Ox
98.4 F 94 17 97/58 95
08/28/24 11:32 08/28/24 12:06 08/28/24 09:51 08/28/24 12:06 08/27/24 22:38
I&O
08/27/24 08/28/24 08/29/24
06:59 06:59 06:59
Intake Total 250 / 250 480 / 480
Balance 250 / 250 480 / 480
Review of Systems
-
History Source: Patient and Family ( in room)
Constitutional: Reports Fever (101.0)
EENT: Reports No Symptoms Reported
Respiratory: Reports Cough
Cardiac: Reports No Symptoms and Palpitations; Denies Chest Pain
Abdomen/GI: Reports No Symptoms
Musculoskeletal: Reports No Symptoms
Physical Exam
-
General: Well Developed, Well Nourished and No Apparent Distress
HEENT: Normocephalic, Atraumatic and Moist Mucous Membranes
Respiratory: Clear to Auscultation; Negative Wheezes, Rales or Rhonchi
Cardiac: S1/S2 and Irregular Rhythm
GI: Soft, Nontender and Nondistended
Musculoskeletal: No Clubbing, No Cyanosis and No Edema
Skin: Warm
Neuro: Awake, Alert and Oriented
[2024-08-28] MEDS: LIPITOR 40 MG PO (17:03)
[2024-08-28] MEDS: ZYRTEC 10 MG PO (17:03)
[2024-08-28] MEDS: MYRBETRIQ EXTENDED RELEASE 50 MG PO (21:38)
[2024-08-28] MEDS: MELATONIN 5 MG PO (22:25)
[2024-08-29] VITALS (14 sets, daily range): BP systolic 111–136; BP diastolic 61–117; BMI 35.9
--- NOTE | 2024-08-29 00:37 | PTCARENOTE ---
assumed care of patient. pt is AAOx3- able to make needs known. VSS. a-fib on the monitor, rates 100s-110s. increases with activity but goes back down with rest. self in the room. care ongoing.
[2024-08-29 04:59] LABS: % Basophils 0.5 % (0-2); % Eosinophils 2.9 % (0-6); % Immature Granulocytes 0.4 % (0-0.5); % Lymphocytes 16.6 % (20.5-51.1); % Monocytes 7.7 % (1.7-9.3); % Neutrophils 71.9 % (42.2-75.2); Absolute Basophils 0.1 10^3/uL (0-0.2); Absolute Eosinophils 0.4 10^3/uL (0-0.7); Absolute Immature Granulocytes 0.1 10^3/uL (0-0.05); Absolute Lymphocytes 2.3 10^3/uL (1.2-3.4); Absolute Neutrophils 9.7 10^3/uL (1.4-6.5); Hematocrit 37.2 % (37.0-47.0); Hemoglobin 12.8 g/dL (12.0-16.0); Mean Corp Hgb Conc. 34.4 g/dL (33.0-37.0); Mean Corpuscular Hgb 30.5 pg (27.0-31.0); Mean Corpuscular Volume 88.8 fL (81.0-99.0); Mean Platelet Volume 9.3 fL (7.4-10.4); Nucleated Red Blood Cells % 0 %; Platelet Count 248 10^3/uL (130-400); Red Blood Cell Count 4.19 10^6/uL (4.20-5.40); Red Cell Dist. Width 14.4 % (11.5-14.5); White Blood Cell Count 13.5 10^3/uL (4.8-10.8)
[2024-08-29 05:22] LABS: Blood Urea Nitrogen 15 mg/dl (7-17); Calcium 9.1 mg/dl (8.4-10.2); Carbon Dioxide 26 mmol/L (22-30); Chloride 106 mmol/L (98-107); Estimated Creatinine Clearance 68 ml/min; Glucose 112 mg/dl (70-99); Potassium 4.1 mmol/L (3.5-5.1); Sodium 138 mmol/L (135-145); eGFR > 60.00
[2024-08-29] MEDS: SYNTHROID 50 MCG PO (06:27)
--- NOTE | 2024-08-29 07:54 | W.PN.CD ---
Addendum entered and electronically signed by Aneudy Rhodes MD 08/29/24 09:01:
echo 08/28/24
Normal biventricular size and systolic function without regional wall motion
abnormality.
Mild concentric left ventricular hypertrophy.
Mild left atrial enlargement.
Mild mitral regurgitation.
No significant change since the prior study dated 05/20/2021.
Original Note:
Today's Communication / Plan
-
Overall patient is feeling better. Currently afebrile.
Rate control is better but still suboptimal.
Will increase Cardizem CD to 360 mg a day for additional rate control
Continue Eliquis 5 mg twice daily.
Would wait until additional recovery from pneumonia before considering converting back to sinus rhythm. If rates are reasonable control and patient's feeling well then we can consider cardioversion after at least 3 weeks of continuous
anticoagulation. However if rate control is suboptimal then we may need to consider DAVIE/CV sooner
Continue treatment of pneumonia/antibiotics as directed by primary team
Monitor cultures.
Impression / Plan
-
78 y/o female (patient of Dr. Rhodes) with dyslipidemia, atrial tachycardia, bradycardia, hypertension, and hypothyroidism with recent travel ( cruise to [facility]) who presents from the cardiology office after she was seen to be in AFIB with RVR
(new diagnosis), which was symptomatic with fatigue. She was sent to ER for further evaluation. 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
AFIB with RVR, onset unknown, new diagnosis:
-IV diltiazem administered for better rate control- Patietn is on Cardizme 120mg as outpatient
- transition to oral Cardizme will give cardizem 240mg this morning
-[id number] score is 4 for age, HTN, female- head CT-negative,- Now on Eliquis 5mg BID
-update echo
- would plan for rate control and anticoagulation until recovery from pneumonia . Will plan for cardioversion after recovery .
.
pneumonia
-fever 101 in first 24 hours now afebrile
- Covid and influenza negative
- abx per primary team
- monitor pending cultures ( BC and urine)
.
mental status - yesterday some complaints doing calculations. may be related to fever/ PNA . Appears improved. Head CT negative
- continue to monitor. tx per
HTN:
-monitor with med adjustments
Hypothyroidism:
tsh 0.8
Physical Exam
Vital Signs/Labs
Vital Signs
Temp Pulse Resp BP Pulse Ox
98.8 F 105 17 111/61 96
08/29/24 07:15 08/29/24 06:00 08/28/24 09:51 08/29/24 06:00 08/29/24 07:50
08/28/24 08/29/24 08/30/24
06:59 06:59 06:59
Actual Weight 89.5 kg 88.9 kg
08/29/24 04:35
08/29/24 04:35
Magnesium 1.9 mg/dl (1.6-2.3) 08/28/24 06:14
Triglycerides 61 mg/dl (10-149) 08/28/24 06:14
LDL Cholesterol, Calc 91 mg/dl 08/28/24 06:14
VLDL Cholesterol, Calc 12 mg/dl (0-30) 08/28/24 06:14
HDL Cholesterol 52 mg/dl 08/28/24 06:14
08/28/24
06:14
[id number] Pept 1650
Physical Exam
Constitutional: Comfortable
Cardiovascular: Rhythm/rate is irregular
Respiratory: Wheeze Absent and Rhonchi Absent
GI: Soft
Neuro/Psych: Alert
Data Reviewed
-
Date of Service: August 29, 2024
Medical Decision Making: Reviewed Test Results
X-Ray/CT/US/MRI/NUC/PET: Report Reviewed by me
Medical Tests (PFT, Pathology etc): Report Reviewed by me
Labs: Labs Reviewed by me
[2024-08-29] MEDS: CARDIZEM CD 360 MG PO (08:02)
[2024-08-29] MEDS: SENOKOT 17.2 MG PO ×2 (08:02→20:06)
[2024-08-29] MEDS: ELIQUIS 5 MG PO ×2 (08:03→20:05)
[2024-08-29] MEDS: COLACE 100 MG PO ×2 (08:04→20:05)
--- NOTE | 2024-08-29 09:20 | W.PN.PUL3 ---
Today's Communication / Plan
-
Abx
prn DuoNebs
Rat control with goal HR<110
Cardiology recs appreciated
MAP>65
Up OOB as tolerated
Outpatient pulmonary office follow-up for full PFTs and repeat imaging to assure her RUL pneumonia has resolved
Trend WBC and monitor for fevers
Believe that she can be ready for discharge tomorrow as long as WBC continues to downtrend and she remains afebrile, and she will finish out course of PO antibiotics
Pulmonary service will continue to follow along
Assessment
-
Assessment: 78-year-old female with a past medical history of atrial tachycardia, hypertension, hypercholesterolemia, hypothyroidism, and osteoarthritis/DJD who presents from her cardiology appointment with new onset A-fib. Patient is also been
feeling significant fatigue for 3 days prior to arrival. Patient follows with Dr. Rhodes and was seen at his office for routine follow-up due to history of atrial ectopic tachycardia with history of PVCs + bradycardia. Prior Holter in February 21
was benign. Patient found to be in atrial fibrillation which is a new diagnosis for her. She had just returned from vacation on 08/22/2024 after going on an 11-day trip with her grandchildren and daughter where she was driving across country seeing
[email or web address]. Prior to that she was on a 19-day trip across [place] and had just returned from that on 08/08/2024. Also last she was vaccinated against COVID. Coincidentally, she started to feel weak and tired about a day after that
without any federico fevers, SOB or cough. Initially in the ER, temperature was 100.3 �F (later found to be febrile to 101 �F), tachycardic to 125, respiratory rate 18, hypertensive to 171/119 and saturating 97% on room air. Initial labs showed
leukocytosis to 15.6, Hb 14.1, TSH 0.8, urinalysis with +1 ketones, +3 leukocyte esterase and 21�25 urine WBC. Her COVID-19 antigen was negative. Influenza swab was negative for flu A/B. Blood cultures + urine cultures collected. CT head showed
no acute intracranial abnormality (performed due to memory issues). Initial CXR showed mild opacification in the right upper lobe adjacent to the minor fissure consistent with pneumonia. She was initially treated with Tylenol, Eliquis, started on
Cardizem drip and given 500 cc bolus of NS 0.9%. She was admitted to the IMU and given her pneumonia, pulmonary service now consulted for additional management/recommendations.
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
Impression:
#Right upper lobe pneumonia/CAP
#New onset A-fib with RVR (now rate controlled)
#Leukocytosis likely due to pneumonia with sepsis without shock
#Elevated proBNP
#Abnormal urinalysis with +3 leukocyte esterase and 21�25 urine WBC
#Hypothyroidism on levothyroxine
#History of hypertension
#History of hypercholesterolemia
Plan:
- Patient found to have a community-acquired pneumonia involving her right upper lobe on CXR from 08/27/2024.
- She has not been feeling well over the last 3 days prior to arrival with fatigue; coincidentally she received the COVID shot last (08/23/2024)
- She also had gone on to long trips, including a 19-day trip to [place] that she just returned from 05/10/2024, and then went on an 11-day trip 2 days later from 08/10 - 08/22/2024. Per the , she also was breathing fast during her sleep last
week and she had woken up with sweats for 2 days last week as well (08/22 + 08/23)
- Given that she was febrile on admission with leukocytosis and opacification in the RUL, agree with treating for CAP with broad-spectrum antibiotics. Currently on ceftriaxone/azithromycin
- Would plan to treat for 7 days total
- Follow-up infectious workup with blood cultures; follow-up urine culture; urine antigens for Legionella + strep pneumonia both negative; check sputum culture if she can produce a decent sample
- Will need repeat imaging in 4-6 weeks to assure her RUL PNA has resolved/improved
- Maintain SpO2 >90-94%
- prn nebulized bronchodilators - not currently bronchospastic; currently no need for scheduled bronchodilators as she denies SOB at rest and denies cough - continue to monitor
- Trend WBC and monitor for fevers
- Maintain MAP>65
- Heart rate control with goal <110 with Cardizem CD now raised to 360mg from 240 mg PO daily
- Cardiology on board - recs appreciated
- Continue Eliquis
- Continue levothyroxine 50 mcg PO daily (of note, TSH was WNL)
- Replete electrolytes with K>4, Mg>2
- Maintain euglycemia with goal BG >100 and <180
- Trend H/H and transfuse if needed to keep Hb>7g/dL; keep plt>20k, unless there is concern for bleeding then keep plt>50k
- Incentive spirometer encouraged 10x per hour for at least 4 hrs a day
- DVT ppx: Eliquis
Pulmonary service will continue to follow along. Outpatient pulmonary office follow-up will be arranged for repeat imaging and also to check full PFTs
Data:
CXR 08/27/2024:
Mild right upper lobe pneumonia. Mild cardiomegaly. No congestive heart failure.
Total time spent today was 38 minutes for this encounter. Time includes reviewing laboratory test/imaging results, reviewing pertinent medical records, obtaining and reviewing medical history, performing an appropriate exam, ordering medications,
tests and procedures. Time also includes documentation of this encounter, coordinating patient care and communicating with other healthcare professionals. Total time does not include separately billed tests performed on this date of service.
Subjective Data
-
Date of Service:
Date of Service: August 29, 2024
Chief Complaint: Pulmonary Follow Up
Subjective:
Patient was seen and evaluated today at bedside. Breathing better today than yesterday. She feels better overall. Denies a cough. Currently on room air breathing comfortably and saturating 96%, heart rate 90 and BP 115/72. Denies chest pain,
MARTIN, nausea, fevers or chills.
Review of Systems
General: Other (Negative unless mentioned above)
Objective Data
Data Reviewed
Vital Signs / I&O / Oxygen:
Vital Signs
Temp Pulse Resp BP Pulse Ox
98.8 F 112 17 124/94 96
08/29/24 07:15 08/29/24 08:02 08/28/24 09:51 08/29/24 08:02 08/29/24 07:50
Intake and Output
08/28/24 08/29/24 08/30/24
06:59 06:59 06:59
Intake Total 250 / 250 720 / 720
Balance 250 / 250 720 / 720
SaO2 96
Physical Exam
General: Respiratory Distress (negative), Comfortable, Chills (negative) and Sweats (negative)
HEENT: Normocephalic and Anicteric
Cardiovascular: Irregular Rhythm (Irregularly irregular) and Peripheral Edema (negative)
Respiratory: Wheeze (negative), Crackles (Bibasilar (L >R)), Rhonchi (negative) and Non-Labored Respirations
GI: Soft, Distended (Abdominal obesity), Non Tender and Normal Bowel Sounds
Neurology: AO x 3 and Tremors (negative)
Skin: Warm, Dry, Cyanosis (negative) and Jaundice (negative)
Labs/Micro/Reports
Lab Data
08/29/24 04:35
08/29/24 04:35
Microbiology
08/27/24 20:04 Urine Urine Culture - Final
08/28/24 19:48 Urine Legionella Urinary Antigen - Final
Negative for Legionella pneumophila Serogroup 1 antigen.
A negative result does not rule out the possiblity of
Legionella infection due to other serogroups or species of
Legionella. Clinical correlation is recommended.
08/28/24 19:48 Urine Streptococcus pneumoniae Antigen (M - Final
Negative for Streptococcus pneumoniae antigen.
A negative result does not exclude infection with
Streptococcus pneumoniae. Clinical correlation is
recommended.
08/27/24 20:04 Blood/Venous Blood Culture - Preliminary
No Growth in 24 hours- Final report to follow
08/27/24 20:04 Blood/Venous Blood Culture - Preliminary
No Growth in 24 hours- Final report to follow
08/27/24 16:05 Nasal Swab Influenza Types A & B (NALDO) - Final
Negative for Influenza A & B, NAAT
Negative results must be combined with clinical observations
and patient history.
Nucleic Acid Amplification test (NAAT)performed on the
[employer] platform.
[2024-08-29] MEDS: TYLENOL 650 MG PO (16:32)
--- NOTE | 2024-08-29 16:34 | CM ---
Patient from [facility] with Dx AFIB with RVR, pneumonia. Room air. Receiving IV Abx. Per nurse; A/O, OOB chair by self.
Met with patient who resides with her in an apartment at [facility].
The patient was independent in ADLs and ambulation.
The patient is very active, and just completed a trip to [place] with her and a trip to [place] and the [facility] with other family.
The patient has no DME, prior VN or SNF.
PCP - Everett Macias
Pharmacy -[facility]
No CM d/c needs identified.
Plan home.
--- NOTE | 2024-08-29 16:59 | PTCARENOTE ---
IR TPA B chest tube was clamped for 2 hrs now back to suction , pt OOB to chair states he is feeling anxious and wants tubes out and go back to the home
--- NOTE | 2024-08-29 17:01 | PTCARENOTE ---
Pt OOb to chair all day, co of pain in LL flank area, nothing noticeable pt states tender to touch Tylenol given as ordered.
[2024-08-29] MEDS: LIPITOR 40 MG PO (17:36)
[2024-08-29] MEDS: ZYRTEC 10 MG PO (17:37)
--- NOTE | 2024-08-29 19:30 | W.PN.HOSP.TC ---
Today's Communication/Plan
-
recheck WBC
rate control as per cardio
Assessment / Plan
Assessment / Plan
AFIB RVR - RATe in the 130s initially, now 84-117
- admit to IMU (fevers with w/u pending)
- COVID negative
- flu Neg
Legionella neg
- on diltiazem CD 360 for rate control
- started eliquis 5 bid
- echo: Normal biventricular size and systolic function without regional wall motion
abnormality.
Mild concentric left ventricular hypertrophy.
Mild left atrial enlargement.
Mild mitral regurgitation.
No significant change since the prior study dated 05/20/2021.
tsh 0.8
- Discussed with Dr. Rhodes, plans transition to oral Cardizem CD 360 qd, will follow for rate control
Fever - Source unknown. Recent COVID 19 vaccination
- flu test Negative
- chest xray
- u/a
- blood cx
Meds: Rocephin/Azithromycin
Pulm consult appreciated
Cardiac - no h/o chf or cad
- hold asa 81
- continue statin
Pulm aspect improving, awaiting further rate control
DVT PPX - on apixaban
Code status - Full code
Anticipated Discharge: 24 - 48 hours
Subjective/Interval History
-
Date of Service: August 29, 2024
Generally feeling better
Objective Data
-
Vital Signs:
Vital Signs
Temp Pulse Resp BP Pulse Ox
98.9 F 117 17 116/76 96
08/29/24 15:05 08/29/24 18:00 08/28/24 09:51 08/29/24 18:00 08/29/24 07:50
I&O
08/28/24 08/29/24 08/30/24
06:59 06:59 06:59
Intake Total 250 / 250 720 / 720
Balance 250 / 250 720 / 720
Review of Systems
-
History Source: Patient and Family ( in room)
Constitutional: Reports Fever (101.0 on 08/27 18:44, afebrile since)
EENT: Reports No Symptoms Reported
Respiratory: Reports Cough
Cardiac: Reports No Symptoms and Palpitations; Denies Chest Pain
Abdomen/GI: Reports No Symptoms
Musculoskeletal: Reports No Symptoms
Physical Exam
-
General: Well Developed, Well Nourished and No Apparent Distress
HEENT: Normocephalic, Atraumatic and Moist Mucous Membranes
Respiratory: Clear to Auscultation; Negative Wheezes, Rales or Rhonchi
Cardiac: S1/S2 and Irregular Rhythm
GI: Soft, Nontender and Nondistended
Musculoskeletal: No Clubbing, No Cyanosis and No Edema
Skin: Warm
Neuro: Awake, Alert and Oriented
--- NOTE | 2024-08-29 20:35 | PTCARENOTE ---
Assumed care of Pt from dayshift RN. Pt is aaox3, resting in chair watching tv. using call light accordingly. afib on monitor, HR 100bpm. Pt reports having a large, soft and formed BM earlier this afternoon. assessment as documented. call light in
reach. safe environment maintained.
[2024-08-29] MEDS: MYRBETRIQ EXTENDED RELEASE 50 MG PO (21:53)
[2024-08-29] MEDS: MELATONIN 5 MG PO (22:45)
[2024-08-30] VITALS (14 sets, daily range): BP systolic 99–138; BP diastolic 63–105; BMI 35.8
[2024-08-30] MEDS: STERILE WATER FOR INJECTION 10 ML IV ×2 (00:48→23:02)
[2024-08-30] MEDS: ZITHROMAX INFUSION 250 IV (00:48)
[2024-08-30] MEDS: ROCEPHIN 1000 MG IV ×2 (00:48→23:02)
[2024-08-30 04:51] LABS: % Basophils 0.4 % (0-2); % Eosinophils 3.8 % (0-6); % Immature Granulocytes 0.5 % (0-0.5); % Lymphocytes 22.9 % (20.5-51.1); % Monocytes 6.5 % (1.7-9.3); % Neutrophils 65.9 % (42.2-75.2); Absolute Basophils 0.1 10^3/uL (0-0.2); Absolute Eosinophils 0.4 10^3/uL (0-0.7); Absolute Immature Granulocytes 0.1 10^3/uL (0-0.05); Absolute Lymphocytes 2.6 10^3/uL (1.2-3.4); Absolute Monocytes 0.7 10^3/uL (0.1-0.6); Absolute Neutrophils 7.5 10^3/uL (1.4-6.5); Hematocrit 38.6 % (37.0-47.0); Hemoglobin 13.1 g/dL (12.0-16.0); Mean Corp Hgb Conc. 33.9 g/dL (33.0-37.0); Mean Corpuscular Hgb 30.4 pg (27.0-31.0); Mean Corpuscular Volume 89.6 fL (81.0-99.0); Mean Platelet Volume 9.6 fL (7.4-10.4); Nucleated Red Blood Cells % 0 %; Platelet Count 267 10^3/uL (130-400); Red Blood Cell Count 4.31 10^6/uL (4.20-5.40); White Blood Cell Count 11.4 10^3/uL (4.8-10.8)
[2024-08-30 05:12] LABS: Blood Urea Nitrogen 14 mg/dl (7-17); Calcium 9.3 mg/dl (8.4-10.2); Carbon Dioxide 25 mmol/L (22-30); Chloride 105 mmol/L (98-107); Estimated Creatinine Clearance 67 ml/min; Glucose 109 mg/dl (70-99); Potassium 4.2 mmol/L (3.5-5.1); Sodium 141 mmol/L (135-145); eGFR > 60.00
[2024-08-30] MEDS: SYNTHROID 50 MCG PO (05:26)
[2024-08-30] MEDS: SENOKOT 17.2 MG PO (08:23)
[2024-08-30] MEDS: ELIQUIS 5 MG PO ×2 (08:23→19:34)
[2024-08-30] MEDS: COLACE 100 MG PO (08:23)
[2024-08-30] MEDS: CARDIZEM CD 360 MG PO (08:24)
--- NOTE | 2024-08-30 08:54 | W.PN.PUL3 ---
Today's Communication / Plan
-
Abx for 7 days total assuming she continues to clinically improve and remains afebrile for 48 hours prior to stopping antibiotic
Trend WBC and monitor for fevers
Up OOB as tolerated
prn DuoNebs
NPO p MN for DAVIE with DCCV tomorrow
Rate control with goal HR<110
Cardiology recs appreciated
MAP>65
Outpatient pulmonary office follow-up for full PFTs and repeat imaging to assure her RUL pneumonia has resolved
No additional recommendations at this time. Outpatient pulmonary office follow-up will be arranged for repeat imaging and to check full PFTs. Pulmonary service will now sign off. Please reconsult if there are any additional questions/concerns, or
if patient's respiratory status deteriorates.
Assessment
-
Assessment: 78-year-old female with a past medical history of atrial tachycardia, hypertension, hypercholesterolemia, hypothyroidism, and osteoarthritis/DJD who presents from her cardiology appointment with new onset A-fib. Patient is also been
feeling significant fatigue for 3 days prior to arrival. Patient follows with Dr. Rhodes and was seen at his office for routine follow-up due to history of atrial ectopic tachycardia with history of PVCs + bradycardia. Prior Holter in February 21
was benign. Patient found to be in atrial fibrillation which is a new diagnosis for her. She had just returned from vacation on 08/22/2024 after going on an 11-day trip with her grandchildren and daughter where she was driving across country seeing
[employer]. Prior to that she was on a 19-day trip across [place] and had just returned from that on 08/08/2024. Also last she was vaccinated against COVID. Coincidentally, she started to feel weak and tired about a day after that
without any federico fevers, SOB or cough. Initially in the ER, temperature was 100.3 �F (later found to be febrile to 101 �F), tachycardic to 125, respiratory rate 18, hypertensive to 171/119 and saturating 97% on room air. Initial labs showed
leukocytosis to 15.6, Hb 14.1, TSH 0.8, urinalysis with +1 ketones, +3 leukocyte esterase and 21�25 urine WBC. Her COVID-19 antigen was negative. Influenza swab was negative for flu A/B. Blood cultures + urine cultures collected. CT head showed
no acute intracranial abnormality (performed due to memory issues). Initial CXR showed mild opacification in the right upper lobe adjacent to the minor fissure consistent with pneumonia. She was initially treated with Tylenol, Eliquis, started on
Cardizem drip and given 500 cc bolus of NS 0.9%. She was admitted to the IMU and given her pneumonia, pulmonary service now consulted for additional management/recommendations.
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
Impression:
#Right upper lobe pneumonia/CAP
#New onset A-fib with RVR (rate controlled)
#Leukocytosis likely due to pneumonia with sepsis without shock - WBC improving
#Elevated proBNP
#Abnormal urinalysis with +3 leukocyte esterase and 21�25 urine WBC
#Hypothyroidism on levothyroxine
#History of hypertension
#History of hypercholesterolemia
Plan:
- Patient found to have a community-acquired pneumonia involving her right upper lobe on CXR from 08/27/2024.
- She has not been feeling well over the last 3 days prior to arrival with fatigue; coincidentally she received the COVID shot last (08/23/2024)
- She also had gone on to long trips, including a 19-day trip to [place] that she just returned from 05/10/2024, and then went on an 11-day trip 2 days later from 08/10 - 08/22/2024. Per the , she also was breathing fast during her sleep last
week and she had woken up with sweats for 2 days last week as well (08/22 + 08/23)
- Given that she was febrile on admission with leukocytosis and opacification in the RUL, agree with treating for CAP with broad-spectrum antibiotics. Currently on ceftriaxone/azithromycin
- Would plan to treat for 7 days total
- Follow-up infectious workup with blood cultures; follow-up urine culture; urine antigens for Legionella + strep pneumonia both negative; check sputum culture if she can produce a decent sample
- Will need repeat imaging in 4-6 weeks to assure her RUL PNA has resolved/improved
- Maintain SpO2 >90-94%
- prn nebulized bronchodilators - not currently bronchospastic; currently no need for scheduled bronchodilators as she denies SOB at rest and denies cough - continue to monitor
- Trend WBC and monitor for fevers
- Maintain MAP>65
- Heart rate control with goal <110 with Cardizem CD now raised to 360mg yesterday from 240 mg PO daily
- Cardiology on board - recs appreciated
- NPO p MN for DAVIE with DCCV
- Continue Eliquis
- Continue levothyroxine 50 mcg PO daily (of note, TSH was WNL)
- Replete electrolytes with K>4, Mg>2
- Maintain euglycemia with goal BG >100 and <180
- Trend H/H and transfuse if needed to keep Hb>7g/dL; keep plt>20k, unless there is concern for bleeding then keep plt>50k
- Incentive spirometer encouraged 10x per hour for at least 4 hrs a day
- DVT ppx: Eliquis
No additional recommendations at this time. Outpatient pulmonary office follow-up will be arranged for repeat imaging and to check full PFTs. Pulmonary service will now sign off. Thank you for allowing us to be involved in the care of this
patient. Please reconsult if there are any additional questions/concerns, or if patient's respiratory status deteriorates.
Data:
CXR 08/27/2024:
Mild right upper lobe pneumonia. Mild cardiomegaly. No congestive heart failure.
Total time spent today was 27 minutes for this encounter. Time includes reviewing laboratory test/imaging results, reviewing pertinent medical records, obtaining and reviewing medical history, performing an appropriate exam, ordering medications,
tests and procedures. Time also includes documentation of this encounter, coordinating patient care and communicating with other healthcare professionals. Total time does not include separately billed tests performed on this date of service.
Subjective Data
-
Date of Service:
Date of Service: August 30, 2024
Chief Complaint: Pulmonary Follow Up
Subjective:
Patient was seen and evaluated today at bedside. She looks very well. Sitting in her chair, playing cards with her . On room air breathing comfortably, denies SOB with rest but has some difficulty breathing when she is speaking. Heart
rate 80, BP 99/64 and saturating 98%. Denies MARTIN, chest pain, nausea, fevers or chills. Cardiology planning for DAVIE with cardioversion tomorrow.
Review of Systems
General: Other (Negative unless mentioned above)
Objective Data
Data Reviewed
Vital Signs / I&O / Oxygen:
Vital Signs
Temp Pulse Resp BP Pulse Ox
98.4 F 109 17 123/79 96
08/30/24 07:17 08/30/24 08:24 08/28/24 09:51 08/30/24 08:24 08/30/24 03:00
Intake and Output
08/29/24 08/30/24 08/31/24
06:59 06:59 06:59
Intake Total 720 / 720 720 / 720
Balance 720 / 720 720 / 720
SaO2 96
Physical Exam
General: Respiratory Distress (negative), Comfortable, Chills (negative) and Sweats (negative)
HEENT: Normocephalic and Anicteric
Cardiovascular: Irregular Rhythm (Irregularly irregular), Peripheral Edema (negative) and Other (Normal heart rate)
Respiratory: Wheeze (negative), Crackles (Faint bibasilar rales), Rhonchi (negative) and Non-Labored Respirations
GI: Soft, Distended (Abdominal obesity), Non Tender and Normal Bowel Sounds
Neurology: AO x 3 and Tremors (negative)
Skin: Warm, Dry, Cyanosis (negative) and Jaundice (negative)
Labs/Micro/Reports
Lab Data
08/30/24 04:24
08/30/24 04:24
Microbiology
08/27/24 20:04 Blood/Venous Blood Culture - Preliminary
No Growth in 48 hours- Final report to follow
08/27/24 20:04 Blood/Venous Blood Culture - Preliminary
No Growth in 48 hours- Final report to follow
08/27/24 20:04 Urine Urine Culture - Final
08/28/24 19:48 Urine Legionella Urinary Antigen - Final
Negative for Legionella pneumophila Serogroup 1 antigen.
A negative result does not rule out the possiblity of
Legionella infection due to other serogroups or species of
Legionella. Clinical correlation is recommended.
08/28/24 19:48 Urine Streptococcus pneumoniae Antigen (M - Final
Negative for Streptococcus pneumoniae antigen.
A negative result does not exclude infection with
Streptococcus pneumoniae. Clinical correlation is
recommended.
08/27/24 16:05 Nasal Swab Influenza Types A & B (NALDO) - Final
Negative for Influenza A & B, NAAT
Negative results must be combined with clinical observations
and patient history.
Nucleic Acid Amplification test (NAAT)performed on the
[employer] platform.
--- NOTE | 2024-08-30 10:13 | W.PN.CD ---
Today's Communication / Plan
-
DAVIE and DCCV tomorrow
NPO after midnight
Impression / Plan
-
78 y/o female (patient of Dr. Rhodes) with dyslipidemia, atrial tachycardia, bradycardia, hypertension, and hypothyroidism with recent travel ( cruise to [place] [place]) who presents from the cardiology office after she was seen to be in AFIB with RVR
(new diagnosis), which was symptomatic with fatigue. She was sent to ER for further evaluation. 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
AFIB with RVR, onset unknown, new diagnosis:
-On dilt 360 mg cont
-[id number] score is 4 for age, HTN, female- head CT-negative,- Now on Eliquis 5mg BID
-echo below
- Patient feels good --> DAVIE DCCV tomorrow
.
pneumonia
-on abx
- no hypoxia
- feeling well
.
mental status - yesterday some complaints doing calculations. may be related to fever/ PNA . Appears improved. Head CT negative
- continue to monitor. tx per
HTN:
-monitor with med adjustments
Hypothyroidism:
tsh 0.8
Subjective: Feels well would like to leave; DCCV for AF tomrorow
Echo August 28 2024: CONCLUSIONS
Normal biventricular size and systolic function without regional wall motion
abnormality.
Mild concentric left ventricular hypertrophy.
Mild left atrial enlargement.
Mild mitral regurgitation.
No significant change since the prior study dated 05/20/2021.
Physical Exam
Vital Signs/Labs
Vital Signs
Temp Pulse Resp BP Pulse Ox
98.4 F 109 17 123/79 96
08/30/24 07:17 08/30/24 08:24 08/28/24 09:51 08/30/24 08:24 08/30/24 03:00
08/29/24 08/30/24 08/31/24
06:59 06:59 06:59
Actual Weight 195 lb 15.855 oz 195 lb 12.328 oz
08/30/24 04:24
08/30/24 04:24
Magnesium 1.9 mg/dl (1.6-2.3) 08/28/24 06:14
Triglycerides 61 mg/dl (10-149) 08/28/24 06:14
LDL Cholesterol, Calc 91 mg/dl 08/28/24 06:14
VLDL Cholesterol, Calc 12 mg/dl (0-30) 08/28/24 06:14
HDL Cholesterol 52 mg/dl 08/28/24 06:14
08/28/24
06:14
Urb-W-Opnoqswiasd Pept 1650
Physical Exam
Constitutional: No acute distress and Comfortable
EENT: Anicteric
Cardiovascular: Rhythm/rate is irregular
Respiratory: Respiratory effort normal and Lungs clear to auscul.
GI: Soft
Neuro/Psych: AO x 3
Data Reviewed
-
Date of Service: August 30, 2024
EKG: Tracing Personally Visualized and interpreted (af)
Echo: Report Reviewed by me
[2024-08-30] MEDS: TYLENOL 650 MG PO (10:56)
[2024-08-30] MEDS: SENOKOT PO (17:04)
[2024-08-30] MEDS: ZYRTEC 10 MG PO (17:04)
[2024-08-30] MEDS: COLACE PO (17:04)
[2024-08-30] MEDS: LIPITOR 40 MG PO (17:04)
--- NOTE | 2024-08-30 17:26 | W.PN.HOSP.TC ---
Today's Communication/Plan
-
Potential cardioversion tomorrow
continue abx
Assessment / Plan
Assessment / Plan
AFIB RVR - RATe in the 130s initially, now 84-117
- admitted to IMU
- COVID negative
- flu Neg
Legionella neg
- on diltiazem CD 360 for rate control
- started eliquis 5 bid
- echo: Normal biventricular size and systolic function without regional wall motion
abnormality.
Mild concentric left ventricular hypertrophy.
Mild left atrial enlargement.
Mild mitral regurgitation.
No significant change since the prior study dated 05/20/2021.
tsh 0.8
On Cardizem CD 360 mg daily - remains in a.fib
Fever - most likely from PNA, fever resolved Recent COVID 19 vaccination
- flu test Negative
- chest xray: Mild right upper lobe pneumonia.
- u/a cx mixed steph
- blood cx Neg
Meds: Rocephin/Azithromycin
Having troulbe concentrating - could be due to PNA
Head CT: No acute intracranial abnormality noted.
Cardiac - no h/o chf or cad
- hold asa 81
- continue statin. Remains on Eliquis
For DAVIE with potential cardioversion tomorrow
Pulm aspect improving, awaiting further rate control
DVT PPX - on apixaban
Code status - Full code
Anticipated Discharge: 24 - 48 hours
Subjective/Interval History
-
Date of Service: August 30, 2024
Feels well. No chest pain
Objective Data
-
Vital Signs:
Vital Signs
Temp Pulse Resp BP Pulse Ox
97.9 F 78 17 99/64 98
08/30/24 15:05 08/30/24 14:00 08/28/24 09:51 08/30/24 14:00 08/30/24 10:37
I&O
08/29/24 08/30/24 08/31/24
06:59 06:59 06:59
Intake Total 720 / 720 720 / 720
Balance 720 / 720 720 / 720
Review of Systems
-
History Source: Patient and Family ( in room)
Constitutional: Reports Fever (101.0 on 08/27 18:44, afebrile since)
EENT: Reports No Symptoms Reported
Respiratory: Reports Cough
Cardiac: Reports No Symptoms and Palpitations; Denies Chest Pain
Abdomen/GI: Reports No Symptoms
Musculoskeletal: Reports No Symptoms
Physical Exam
-
General: Well Developed, Well Nourished and No Apparent Distress
HEENT: Normocephalic, Atraumatic and Moist Mucous Membranes
Respiratory: Clear to Auscultation; Negative Wheezes, Rales or Rhonchi
Cardiac: S1/S2 and Irregular Rhythm; Negative Tachycardic (resolved)
GI: Soft, Nontender and Nondistended
Musculoskeletal: No Clubbing, No Cyanosis and No Edema
Skin: Warm
Neuro: Awake, Alert and Oriented
--- NOTE | 2024-08-30 19:11 | PTCARENOTE ---
Rec'd pt this AM. up at [facility] throughout the day. no complaints, vital signs stable. Educated on NPO after midnight for procedure tomorrow.
[2024-08-30] MEDS: MYRBETRIQ EXTENDED RELEASE 50 MG PO (19:34)
[2024-08-30] MEDS: ZITHROMAX 500 MG PO (21:24)
[2024-08-30] MEDS: MELATONIN 5 MG PO (21:25)
[2024-08-31] VITALS (8 sets, daily range): BP systolic 106–139; BP diastolic 66–107; BMI 35.7
[2024-08-31] MEDS: SYNTHROID 50 MCG PO (05:50)
--- NOTE | 2024-08-31 08:12 | W.PN.CD ---
Today's Communication / Plan
-
DAVIE DCCV today
D/c after
Cont Eliquis/dilt
We will sign off please call with questions/concerns
Impression / Plan
-
78 y/o female (patient of Dr. Rhodes) with dyslipidemia, atrial tachycardia, bradycardia, hypertension, and hypothyroidism with recent travel ( cruise to [place]) who presents from the cardiology office after she was seen to be in AFIB with RVR
(new diagnosis), which was symptomatic with fatigue. She was sent to ER for further evaluation. 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
AFIB with RVR, onset unknown, new diagnosis:
-On dilt 360 mg cont
-[id number] score is 4 for age, HTN, female- head CT-negative,- Now on Eliquis 5mg BID
-echo below
- DAVIE DCCV today
- cont dilt and Eliquis
.
pneumonia
-resolving
- on abx
- per primary
.
mental status -resolved
HTN:
-monitor with med adjustments
Hypothyroidism:
tsh 0.8
Subjective: DAVIE DCCV today
Echo August 28 2024: CONCLUSIONS
Normal biventricular size and systolic function without regional wall motion
abnormality.
Mild concentric left ventricular hypertrophy.
Mild left atrial enlargement.
Mild mitral regurgitation.
No significant change since the prior study dated 05/20/2021.
Physical Exam
Vital Signs/Labs
Vital Signs
Temp Pulse Resp BP Pulse Ox
98.0 F 108 17 137/107 96
08/31/24 07:15 08/31/24 06:08 08/28/24 09:51 08/31/24 06:08 08/30/24 20:15
08/30/24 08/31/24 09/01/24
06:59 06:59 06:59
Actual Weight 195 lb 12.328 oz 195 lb 1.745 oz
08/30/24 04:24
08/30/24 04:24
Magnesium 1.9 mg/dl (1.6-2.3) 08/28/24 06:14
Triglycerides 61 mg/dl (10-149) 08/28/24 06:14
LDL Cholesterol, Calc 91 mg/dl 08/28/24 06:14
VLDL Cholesterol, Calc 12 mg/dl (0-30) 08/28/24 06:14
HDL Cholesterol 52 mg/dl 08/28/24 06:14
08/28/24
06:14
Dky-[id number] Pept 1650
Physical Exam
Constitutional: No acute distress and Comfortable
EENT: Anicteric
Cardiovascular: Rhythm/rate is irregular
Respiratory: Respiratory effort normal and Lungs clear to auscul.
GI: Soft
Neuro/Psych: AO x 3
Data Reviewed
-
Date of Service: August 31, 2024
EKG: Tracing Personally Visualized and interpreted (af)
Echo: Report Reviewed by me
Labs: Labs Reviewed by me
[2024-08-31] MEDS: SENOKOT PO (09:10)
[2024-08-31] MEDS: COLACE PO (09:10)
[2024-08-31] MEDS: ELIQUIS 5 MG PO (09:11)
[2024-08-31] MEDS: CARDIZEM CD 360 MG PO (09:11)
--- NOTE | 2024-08-31 09:47 | PN.CDI ---
CDI
- -
CDI:
Physician Documentation Request
Admit Date: 08/27/24 20:13
Dear Doctor Eden,
Please review the following and provide your response in the progress notes.
Clinical Indicators:
Pt admitted with Fever 2/2 Pneumonia - Rocephin/Azithromycin
Documented per ED, 'patient is tachycardic from 120s to 150s...'
Cardiology consult,' #Right upper lobe pneumonia/CAP....Leukocytosis likely due to pneumonia with sepsis without shock....'
On admission Tmax 101.0, HR 155, Respirations 27,WBC 15.6
Please clarify which of the following most accurately describes the status of the patient's infection:
Sepsis-POA
- Systemic manifestations of infection, with 2 or more SIRS criteria which include:
- Fever >100.4 degrees F or hypothermia < 96.8 degrees F
- Leukocytosis - WBC > 12,000 or leukopenia - WBC < 4,000 or > 10% bands
- Tachycardia > 90 beats per minute
- Tachypnea - RR > 20 breaths per minute or PaCO2 , 32mmHg
Source: [employer] Manual 2013
Pneumonia only, Without Systemic Illness
Other ( please specify)
Use of terms such as suspected, likely, concern for, or probable (associated with a specific diagnosis that is being evaluated, monitored, or treated as if it exists) are acceptable and can be coded in the inpatient setting, when documented at the
time of discharge.
Thank you,
Gi Alfaro RN
CDI Specialist
[place] [facility]
Please use your independent medical judgment in providing your response.
--- NOTE | 2024-08-31 10:27 | PTCARENOTE ---
Patient brought in wheelchair to cath cath for DAVIE/cardioversion by patient transport. Verbal report given to superintendent geophysical laboratory RN.
--- NOTE | 2024-08-31 11:29 | ITS.CL.CARDI ---
G[facility]utter - Cardioversion
Cardioversion
Procedure Report:
Date of Procedure: 08/31/24
Procedure: Cardioversion
Indication: Symptomatic atrial fibrillation
Performing Physician: Nash Etienne MD
Technique: The patient was brought to the holding area. Signed informed consent was obtained. A time out was called and performed. The patient was anesthetized by the anesthesia service. Anticoagulation status was reviewed and appropriate. R2 pads
were placed anteriorly and posteriorly. After Felipe revealed no LA appendaage thrombus, a 200 J synchronized biphasic shock restored normal sinus rhythm without significant bradycardia. There were no complications.
Conclusion: Uncomplicated cardioversion from atrial fibrillation to sinus rhythm.
Recommendation: Routine post cardioversion care. Continue senior living anticoagulation.
--- NOTE | 2024-08-31 12:28 | PTCARENOTE ---
Patient arrived back from DAVIE/cardioversion. BP stable. NSR on monitor. Care ongoing.
--- NOTE | 2024-08-31 15:09 | PTCARENOTE ---
Patient AOx3. Patient on RA. NSR post cardioversion. BP stable. Patient independent and ambulating in room/thomas. Tolerating diet. Call nieves within reach, bed in lowest position, and bed of wheels locked.
--- NOTE | 2024-08-31 15:17 | W.PN.HOSP.TC ---
Addendum entered and electronically signed by Edgar Harmon MD 08/31/24 17:26:
Pt was septic on admission with fever, tachycardia, pneumonia and leukocytosis of 15.6k
Original Note:
Today's Communication/Plan
-
dc to home
see dictated note
Assessment / Plan
Assessment / Plan
AFIB RVR - RATe in the 130s initially, now 75 and regular
- admitted to IMU
- COVID negative
- flu Neg
Legionella neg
- on diltiazem CD 360 for rate control
- started eliquis 5 bid
- echo: Normal biventricular size and systolic function without regional wall motion
abnormality.
Mild concentric left ventricular hypertrophy.
Mild left atrial enlargement.
Mild mitral regurgitation.
No significant change since the prior study dated 05/20/2021.
tsh 0.8
On Cardizem CD 360 mg daily - post cardioversion remains in NSR
Fever - most likely from PNA, fever resolved Recent COVID 19 vaccination
- flu test Negative
- chest xray: Mild right upper lobe pneumonia.
- u/a cx mixed steph
- blood cx Neg
Meds: Rocephin/Azithromycin
Having troulbe concentrating - could be due to PNA
Head CT: No acute intracranial abnormality noted.
Cardiac - no h/o chf or cad
- hold asa 81
- continue statin. Remains on Eliquis
Pulm aspect improving, awaiting further rate control
DVT PPX - on apixaban
Code status - Full code
More than 30 minutes spent in discharge including
Final examination of the patient
Summarizing hospital stay
Instructions for continuing care to all relevant caregivers
Preparation of discharge records, prescriptions, and referral forms
Total time spent (in minutes): 45
Anticipated Discharge: Today
Subjective/Interval History
-
Date of Service: August 31, 2024
Feels well, anxiously awaiting dc. Cleared by cardio and Pulm to be dc (and I called each to confirm)
Objective Data
-
Vital Signs:
Vital Signs
Temp Pulse Resp BP Pulse Ox
98 F 75 17 139/87 95
08/31/24 15:00 08/31/24 12:15 08/28/24 09:51 08/31/24 12:15 08/31/24 12:00
I&O
08/30/24 08/31/24 09/01/24
06:59 06:59 06:59
Intake Total 720 / 720
Balance 720 / 720
Review of Systems
-
History Source: Patient and Family ( in room)
Constitutional: Reports Fever (101.0 on 08/27 18:44, afebrile since)
EENT: Reports No Symptoms Reported
Respiratory: Reports Cough
Cardiac: Reports No Symptoms and Palpitations; Denies Chest Pain
Abdomen/GI: Reports No Symptoms
Musculoskeletal: Reports No Symptoms
Physical Exam
-
General: Well Developed, Well Nourished and No Apparent Distress
HEENT: Normocephalic, Atraumatic and Moist Mucous Membranes
Respiratory: Clear to Auscultation; Negative Wheezes, Rales or Rhonchi
Cardiac: Regular Rhythm and S1/S2; Negative Tachycardic (resolved)
GI: Soft, Nontender and Nondistended
Musculoskeletal: No Clubbing, No Cyanosis and No Edema
Skin: Warm
Neuro: Awake, Alert and Oriented
--- NOTE | 2024-08-31 17:07 | CM ---
Met with patient and while patient was preparing for d/c - the patient says she feels ready to go home today. IMM completed. will provide transport home.
No CM d/c needs identified.
Plan home today.
--- NOTE | 2024-08-31 17:28 | W.DS.TRANS ---
DC Summary - Credit Rating Checker
-
Discharge Instructions:
Discharge Diagnosis/Procedures Pneumonia, Atrial Fibrillation
Diet Regular
Activity No strenuous activity
Driving Restrictions Not until seen by your Dr
Bathing Restrictions None
Blood Work CBC, CMP in 1-2 weeks
Instructions:
Stand-Alone Forms:
Changes to Home Medications: Yes
Discharge Medications:
DC Medications w/original date entered in [facility]
Iron 65 mg PO QPM Supplement 10/03/18
atorvastatin 40 mg tablet 40 mg PO QPM High cholesterol 10/03/18
biotin 5 mg capsule 5 mg PO DAILY Supplement 10/03/18
calcium 600 mg (as carbonate)-vitamin D3 10 mcg (400 unit) tablet (Calcium 600 + D(3)) 1 ea PO QPM Supplement 10/03/18
cetirizine 10 mg tablet 10 mg PO QPM Allergies 10/03/18
levothyroxine 50 mcg tablet 50 mcg PO DAILY@0700 Thyroid 10/03/18
cholecalciferol (vitamin D3) 10 mcg (400 unit) tablet (Vitamin D3) 1,000 units PO QPM Supplement 03/04/21
magnesium 200 mg tablet 360 mg PO QPM Electrolyte Repletion 03/04/21
vitamin B complex-vitamin C-folic acid 400 mcg tablet 1 tab PO QPM Supplement 03/04/21
melatonin 1 mg tablet 5 mg PO HSPRN PRN insomnia 03/09/21
coenzyme Q10 300 mg capsule (Co Q-10) 300 mg PO QPM Supplement ##0 03/18/21
docosahexaenoic acid (dha)-epa 120 mg-180 mg capsule 3,600 mg PO QPM Supplement ##0 03/18/21
docusate sodium 100 mg capsule 100 mg PO BID 03/18/21
glucosamine sulfate dipotassium Cl 500 mg-chondroitin 400 mg capsule (Glucosamine Sulfate 2 KCL-Chondroitin) 2 cap PO QPM Supplement ##0 03/18/21
sennosides 8.6 mg tablet (senna) 2 tab PO BID 03/18/21
mirabegron 50 mg tablet,extended release 24 hr (Myrbetriq) 50 mg PO HS 08/28/24
apixaban 5 mg tablet (Eliquis) 5 mg PO BID #60 tabs 08/31/24
cefuroxime axetil 500 mg tablet 500 mg PO BID 10 days #20 tabs 08/31/24
diltiazem HCl 180 mg capsule,extended release 24 hr 360 mg (2 x 180 mg) PO DAILY #90 caps 08/31/24
Home Medication Changes
short term antibiotics
Eliquis
Diltiazem 360 mg per day
Pending Results: No
== END 2024-08-31 16:00 | disposition home or self-care (01) | DRG 871 ==
LOC: IMU 20:13
PROVIDERS: Emergency Medicine; Internal Medicine Cardiovascular Disease; Physician Assistant; ADMITTING PHYSICIAN Internal Medicine; ATTENDING PHYSICIAN Internal Medicine; CONSULT PHYSICIAN Internal Medicine Critical Care Medicine; EMERGENCY PHYSICIAN Emergency Medicine; FAMILY PHYSICIAN Physician Assistant Medical
PROC: 5A2204Z Restoration of Cardiac Rhythm, Single (ICD-10-PCS; 2024-08-31)
PROC: B24BZZ4 Ultrasonography of Heart with Aorta, Transesophageal (ICD-10-PCS; 2024-08-31)
DX: A41.89 Other specified sepsis (principal); J18.9 Pneumonia, unspecified organism; I47.19 Other supraventricular tachycardia; I48.91 Unspecified atrial fibrillation; E78.00 Pure hypercholesterolemia, unspecified; E03.9 Hypothyroidism, unspecified; I10 Essential (primary) hypertension; M19.90 Unspecified osteoarthritis, unspecified site; I70.0 Atherosclerosis of aorta; E78.5 Hyperlipidemia, unspecified; I34.0 Nonrheumatic mitral (valve) insufficiency; R32 Unspecified urinary incontinence; Z96.652 Presence of left artificial knee joint; Z90.49 Acquired absence of other specified parts of digestive tract; Z98.1 Arthrodesis status; Z91.030 Bee allergy status; Z11.52 Encounter for screening for COVID-19; Z79.890 Hormone replacement therapy; Z80.52 Family history of malignant neoplasm of bladder; Z82.49 Family history of ischemic heart disease and other diseases of the circulatory system; Z79.01 Long term (current) use of anticoagulants
CPT/HCPCS: 70450; 71046; 80048; 80053; 80061; 81003; 81015; 83735; 83880; 84100; 84443; 85025; 85027; 87040; 87086; 87147; 87205; 87449; 87502; 87811; 87899; 92960; 93005; 93306; 93312; 93320; 93325; 96374; 96375; 99285

== ENCOUNTER → 2024-10-16 14:49 | Outpatient (REF) | payer OTHER, SELFPAY | LOC: HWRAD 14:49 | PROVIDERS: ATTENDING PHYSICIAN Nurse Practitioner Adult Health; FAMILY PHYSICIAN Physician Assistant Medical | DX: J18.9 Pneumonia, unspecified organism (principal) | CPT/HCPCS: 71046 ==

== ENCOUNTER → 2024-12-13 13:34 | Outpatient (REF) | payer OTHER, SELFPAY | LOC: HWWDC 13:34 | PROVIDERS: ATTENDING PHYSICIAN Physician Assistant Medical | DX: Z12.31 Encounter for screening mammogram for malignant neoplasm of breast (principal); Z78.0 Asymptomatic menopausal state | CPT/HCPCS: 77063; 77067; 77080 ==

== ENCOUNTER → 2025-01-15 08:51 | Outpatient (REF) | payer OTHER, SELFPAY | LOC: HWRAD 08:51 | PROVIDERS: ATTENDING PHYSICIAN Physician Assistant; FAMILY PHYSICIAN Physician Assistant Medical | DX: E04.2 Nontoxic multinodular goiter (principal) | CPT/HCPCS: 76536 ==

== ENCOUNTER 2025-04-23 06:37 | Day surgery (SDC) | payer OTHER, SELFPAY | END 2025-04-23 11:55 | disposition home or self-care (01) | LOC: GI 06:37 | PROVIDERS: ATTENDING PHYSICIAN Student in an Organized Health Care Education/Training Program; FAMILY PHYSICIAN Physician Assistant Medical | DX: Z12.11 Encounter for screening for malignant neoplasm of colon (principal); K57.30 Diverticulosis of large intestine without perforation or abscess without bleeding; D12.2 Benign neoplasm of ascending colon; D12.3 Benign neoplasm of transverse colon; D12.4 Benign neoplasm of descending colon; K62.89 Other specified diseases of anus and rectum; K63.5 Polyp of colon; K62.1 Rectal polyp | CPT/HCPCS: 45385; 45380; 88305 ==